=== PATIENT | female | born 1965 | race Caucasian/White ===

== ENCOUNTER 2018-06-16 09:02 | Day surgery (SDC) | payer OTHER ==
[~2018-06-16] VITALS: Ht 165.1 cm; Wt 69.6 kg
[~2018-06-16 09:02] MED LIST: LEVO112T2 PO; LIDOCAINE 2% INJ 100 MG/5 ML SDV (FOR ANES.) As Ordered ONE; MAG-400T7 PO; MULT1TAB10 PO; NS 1,000 ML IV ONE; PROG100C PO; PROPOFOL 200 MG/20 ML VIAL As Ordered ONE; VITA100067 PO
[2018-06-16] MEDS ORDERED: PROPOFOL 200 MG/20 ML VIAL As Ordered ONE (10:18)
--- NOTE | 2018-06-16 10:35 | ROOR ---
Patient Name: Shantal Maki Procedure Date: 06/16/2018 10:07 AM Date of : 1965 Age: 52 Room: [facility] Gender: Female Note Status: Finalized Procedure: Colonoscopy Indications: Screening for colorectal malignant neoplasm Providers: Zander Brooks Jr, MD Referring MD: Christopher Singh MD Requesting Provider: Medicines: Propofol per Anesthesia Complications: No immediate complications. Procedure: Pre-Anesthesia Assessment: - Prior to the procedure, a History and Physical was performed, and patient medications and allergies were reviewed. The patient is competent. The risks and benefits of the procedure and the sedation options and risks were discussed with the patient. All questions were answered and informed consent was obtained. Patient identification and proposed procedure were verified by the physician and the nurse in the pre-procedure area and in the procedure room. Mental Status Examination: alert and oriented. Airway Examination: normal oropharyngeal airway and neck mobility. Respiratory Examination: clear to auscultation. CV Examination: normal. ASA Grade Assessment: I - A normal, healthy patient. After reviewing the risks and benefits, the patient was deemed in satisfactory condition to undergo the procedure. The anesthesia plan was to use moderate sedation / analgesia (conscious sedation). Immediately prior to administration of medications, the patient was re-assessed for adequacy to receive sedatives. The heart rate, respiratory rate, oxygen saturations, blood pressure, adequacy of pulmonary ventilation, and response to care were monitored throughout the procedure. The physical status of the patient was re-assessed after the procedure. The Colonoscope was introduced through the anus and advanced to the right colon. The patient tolerated the procedure well. The quality of the bowel preparation was adequate and fair. The colonoscopy was performed with moderate difficulty due to a redundant colon. Successful completion of the procedure was aided by changing the patient's position, using manual pressure and withdrawing and reinserting the scope. Findings: The rectum, recto-sigmoid colon, sigmoid colon, descending colon, transverse colon and ascending colon appeared normal. The sigmoid colon, descending colon, transverse colon and ascending colon were significantly redundant. Impression: - Preparation of the colon was fair. - The rectum, recto-sigmoid colon, sigmoid colon, descending colon, transverse colon and ascending colon are normal. - Redundant colon. - No specimens collected. Recommendation: - Discharge patient to home (ambulatory). - Repeat colonoscopy in 10 years for screening purposes. Zander Brooks MD Zander Brooks Jr, MD 06/16/2018 10:34:27 AM Electronically signed by Zander Brooks Jr, MD Number of Addenda: 0 Note Initiated On: 06/16/2018 10:07 AM Estimated Blood Loss: Estimated blood loss: none.
[2018-06-16 10:55] VITALS: BP 103/58
== END 2018-06-16 11:13 | disposition home or self-care (01) ==
LOC: M OPP 09:02
PROVIDERS: ATTEND Surgery
DX: Q43.8 Other specified congenital malformations of intestine (principal); Z12.11 Encounter for screening for malignant neoplasm of colon

== ENCOUNTER → 2018-10-07 | Outpatient (CLI) | payer OTHER ==
[~2018-10-07] MED LIST changes: -LIDOCAINE 2% INJ 100 MG/5 ML SDV (FOR ANES.) As Ordered ONE; -NS 1,000 ML IV ONE; -PROG100C PO; +PROG1CAP8 PO; -PROPOFOL 200 MG/20 ML VIAL As Ordered ONE
--- NOTE | 2018-10-07 18:43 | REP ---
MRI RIGHT SHOULDER: TECHNIQUE: Axial T2 fat sat, gradient echo, sagittal oblique T2 fat sat, coronal oblique T1, T2 fat sat. Supraspinatus tendon demonstrates some minor ill-defined high signal compatible with minor tendinopathy. There is increased signal in the subscapularis tendon extending through the majority of the thickness of the tendon most consistent with a partial tear. There are mild hypertrophic degenerative changes of the acromioclavicular joint with a tiny amount of fluid in the joint and mild subchondral cystic change in the distal end of the clavicle. Acromion is type 2. Biceps tendon is within the bicipital groove with no tenosynovitis. There is no Hill Sach's deformity. The deltoid muscle demonstrates no abnormal signal. There is fraying of the biceps labral complex. However I do not see evidence of a discrete labral tear. No paralabral cyst is seen. Mild subchondral cystic changes are seen in the superolateral humeral head. There is a normal amount of joint fluid. IMPRESSION: Minor supraspinatus tendinopathy. There appears to be a partial tear of the subscapularis tendon. There are mild hypertrophic degenerative changes of the acromiclavicular joint with a type 2 acromion. Fraying of the biceps labral complex without a discrete labral tear. Electronically Signed by Samere Mccarthy MD 10/09/2018 09:10 P
--- NOTE | 2018-10-11 12:16 | REPVR ---
EXAM: MR Cervical Spine Without Contrast EXAM DATE/TIME: 10/07/2018 4:47 PM CLINICAL HISTORY: 52 years old, female; Neck pain; Patient HX: Neck shoulder pain; Additional info: Osteoarthritis right shoulder, ddd cervical TECHNIQUE: Imaging protocol: Multiplanar magnetic resonance images of the cervical spine without contrast. COMPARISON: No relevant prior studies available. FINDINGS: Vertebral body heights are intact. Alignment is maintained. The cervicomedullary junction appears unremarkable. The spinal cord appears normal in signal. There are varying degrees of disc desiccation indicating intervertebral disc degeneration. C2-3: No significant disc displacement. C3-4: Disc osteophyte complex combined with uncinate hypertrophy to lead to mild bilateral neural foraminal narrowing without significant spinal stenosis. C4-5: Disc osteophyte complex with a broad-based central protrusion combining with uncinate hypertrophy to lead to mild right and mild to moderate left neural foraminal narrowing with mild indentation of the anterior aspect of the spinal cord, without significant central canal stenosis. C5-6: Disc osteophyte complex combining with uncinate hypertrophy to lead to mild right and moderate left neural foraminal narrowing without significant spinal stenosis. C6-7: Disc osteophyte complex combining with uncinate hypertrophy to lead to very mild right and mild left neural foraminal narrowing without significant spinal stenosis. C7-T1: Included on the sagittal sequences only, there appears to be a small osteophytic ridge with very mild bilateral neural foraminal narrowing. If surgery is considered, recommend level confirmation. IMPRESSION: Multilevel disc desiccation indicating intervertebral disk degeneration with disc displacements as described. Electronically signed by: Jeremiah Hickman On 10/11/2018 12:16:04 PM
== END ==
LOC: M RAD 15:26
PROVIDERS: ATTEND Physician Assistant
DX: M19.011 Primary osteoarthritis, right shoulder (principal)

== ENCOUNTER → 2019-12-29 | Outpatient (REF) | payer OTHER ==
[2019-12-29 13:20] LABS: FREE T3 2.4 PG/ML (2.2-4.0); RHEUMATOID FACTOR QUANT < 10.0 IU/ML (<15.0)
[2019-12-30 17:07] LABS: ANTINUCLEAR ANTIBODIES DIRECT Negative (Negative); Lyme Disease IgG/IgM Antibodie <0.91 ISR (0.00-0.90); Lyme Disease IgM Ab Quantitati <0.80 index (0.00-0.79)
== END ==
LOC: M LAB REF 12:15
PROVIDERS: ATTEND Family Medicine
DX: E03.9 Hypothyroidism, unspecified (principal); M25.50 Pain in unspecified joint

== ENCOUNTER → 2021-02-06 | Outpatient (CLI) | payer OTHER ==
--- NOTE | 2021-02-06 13:51 | REPMRS ---
Patient History The patient states she had a clinical breast examin 2020. Patient is postmenopausal. Family history of prostate cancer at age 75 in father. Benign stereotactic [place] of the left breast, August 2011. Benign stereotactic [place] of the left breast, 2011. No Hormone Replacement Therapy Patient states no breast complaints today. Patient has signed MRS History Sheet. Digital Woman Screen Mammo: February 06, 2021 - Exam #: [id number] Bilateral CC and MLO view(s) were taken. Technologist: Kimberley Rodriguez, Tai Chi Instructor Prior study comparison: October 08, 2015, bilateral digital mammo screening bilat, performed at [facility]. October 02, 2014, bilateral digital mammo screening bilat, performed at [facility]. FINDINGS: The breast tissue is heterogeneously dense. This may lower the sensitivity of mammography. Screening. Digital screening (2D) mammography was performed bilaterally in the CC and MLO projections. Additionally, breast tomosynthesis (3D mammography) was performed bilaterally in the CC and MLO projections. Todays exam was compared to the prior exam/exams. By history, the patient has no complaints of a palpable breast abnormality or other significant breast complaints. The Volpara volumetric breast density category is C, the breasts are heterogenously dense which may obscure small masses. There are two stable biopsy clips in the left breast. The breasts are unchanged in size and shape. There are no too-soft tissue densities or spiculated masses. There is no internal architectural distortion. There are no suspicious too-calcific clusters. Skin thickening or nipple retraction is not present. IMPRESSION: BI-RADS Category 2- Benign Findings. There is no evidence of malignant alteration of the breasts. Followup examination recommended in one year. The lifetime Tyrer-Cuzick score is 12.9% This mammogram was read with the assistance of [employer],an FDA approved computer aided detection system for mammography. Due to the density of the breasts or Tyrer Cuzick score of 20% or greater, MRI/whole breast screening ultrasound is warranted. Negative x-ray reports should not delay surgical consultation if a dominant or clinically suspicious mass is present. Not all breast cancers can be identified by mammography. Therefore, we recommend that you continue to perform regular breast self-examination and physical examination and then promptly contact your physician of any concerns or changes. Adenosis and dense breasts may obscure an underlying neoplasm. Assessment: BI-RADS/ACR category 2 mammogram. Benign Findings. Recommendation Routine screening mammogram of both breasts in 1 year. Electronically Signed By: Hector Crowell MD 02/06/21 [id number]
== END ==
LOC: M WHC 12:54
PROVIDERS: ATTEND Family Medicine
DX: Z12.31 Encounter for screening mammogram for malignant neoplasm of breast (principal); M81.0 Age-related osteoporosis without current pathological fracture

== ENCOUNTER → 2021-09-08 | Outpatient (CLI) | payer BC ==
[2021-09-08 14:37] LABS: HEMATOCRIT 38.3 % (36.0-47.0); MEAN CORPUSCULAR HEMOGLOBIN 32.2 pg (27.0-33.0); MEAN CORPUSCULAR HGB CONC 33.9 g/dl (32.0-36.5); MEAN CORPUSCULAR VOLUME 94.8 fl (80.0-96.0); PLATELET COUNT, AUTOMATED 316 10^3/uL (150-450); RED BLOOD COUNT 4.04 10^6/uL (4.00-5.40); WHITE BLOOD COUNT 4.2 10^3/uL (4.0-10.0)
[2021-09-08 15:07] LABS: ALBUMIN 4.1 GM/DL (3.2-5.2); ALT/SGPT 20 U/L (12-78); BILIRUBIN,TOTAL 0.3 MG/DL (0.2-1.0); BLOOD UREA NITROGEN 11 MG/DL (7-18); CALCIUM LEVEL 9.7 MG/DL (8.5-10.1); CARBON DIOXIDE LEVEL 28 MEQ/L (21-32); CHLORIDE LEVEL 106 MEQ/L (98-107); CREATININE FOR GFR 0.84 MG/DL (0.55-1.30); GLOMERULAR FILTRATION RATE > 60.0 (>51); GLUCOSE, FASTING 92 MG/DL (70-100); MAGNESIUM LEVEL 2.3 MG/DL (1.8-2.4); SODIUM LEVEL 141 MEQ/L (136-145); TOTAL PROTEIN 6.9 GM/DL (6.4-8.2)
[2021-09-08 15:27] LABS: CK-MB VALUE MASS < 1.0 NG/ML (<3.6); CPK CREATINE PHOSPHOKINASE 55 U/L (26-192); MB/CK RELATIVE INDEX 1.82 (< OR =4)
[2021-09-08 17:35] LABS: MYOGLOBIN 33 NG/ML (13-71)
== END ==
LOC: M RAD 13:50
PROVIDERS: ATTEND Physician Assistant
DX: R07.9 Chest pain, unspecified (principal)

== ENCOUNTER → 2022-02-20 | Outpatient (CLI) | payer BC | LOC: M WHC 15:44 | PROVIDERS: ATTEND Obstetrics & Gynecology | DX: Z12.31 Encounter for screening mammogram for malignant neoplasm of breast (principal) ==

== ENCOUNTER → 2022-10-15 | Outpatient (REF) | payer BC ==
[2022-10-15 18:21] LABS: BASO # 0.1 10^3/uL (0.0-0.2); EOS # 0.1 10^3/uL (0.0-0.5); EOS % 2.3 % (0.0-3.0); HEMATOCRIT 35.9 % (36.0-47.0); HEMOGLOBIN 11.7 g/dl (12.0-15.5); LYMPH # 1.8 10^3/uL (1.5-5.0); LYMPH % 34.6 % (24.0-44.0); MEAN CORPUSCULAR HEMOGLOBIN 32.3 pg (27.0-33.0); MEAN CORPUSCULAR HGB CONC 32.6 g/dl (32.0-36.5); MEAN CORPUSCULAR VOLUME 99.2 fl (80.0-96.0); MONO # 0.5 10^3/uL (0.0-0.8); MONO % 10.3 % (2.0-8.0); NEUTROPHILS # 2.7 10^3/uL (1.5-8.5); NEUTROPHILS % 51.6 % (36.0-66.0); PLATELET COUNT, AUTOMATED 301 10^3/uL (150-450); RED BLOOD COUNT 3.62 10^6/uL (4.00-5.40); WHITE BLOOD COUNT 5.2 10^3/uL (4.0-10.0)
[2022-10-15 18:47] LABS: ALBUMIN 4.2 G/DL (3.2-5.2); ALKALINE PHOSPHATASE 50 U/L (46-116); ALT/SGPT 14 U/L (7.0-40); AST/SGOT 10 U/L (<34); BILIRUBIN,TOTAL 0.5 MG/DL (0.3-1.2); BLOOD UREA NITROGEN 17 MG/DL (9-23); CALCIUM LEVEL 9.3 MG/DL (8.5-10.1); CARBON DIOXIDE LEVEL 28 MMOL/L (20-31); CHLORIDE LEVEL 102 MMOL/L (98-107); CREATININE FOR GFR 0.72 MG/DL (0.55-1.30); FREE T4 1.41 NG/DL (0.89-1.76); GLOMERULAR FILTRATION RATE > 60.0 (>51); GLUCOSE, FASTING 86 MG/DL (60-100); SODIUM LEVEL 138 MMOL/L (136-145); THYROID STIMULATING HORMONE 0.963 uIU/ML (0.55-4.78); TOTAL PROTEIN 6.8 G/DL (5.7-8.2)
== END ==
LOC: M LAB REF 17:14
PROVIDERS: ATTEND Family Medicine
DX: E78.5 Hyperlipidemia, unspecified (principal); E03.9 Hypothyroidism, unspecified

== ENCOUNTER → 2023-02-24 | Outpatient (CLI) | payer BC | LOC: M WHC 16:35 | PROVIDERS: ATTEND Family Medicine | DX: Z12.31 Encounter for screening mammogram for malignant neoplasm of breast (principal) ==

== ENCOUNTER → 2024-03-31 | Outpatient (CLI) | payer BC | LOC: M WUC 08:05 | PROVIDERS: ATTEND Family Medicine | DX: M54.50 Low back pain, unspecified (principal); W19.XXXA Unspecified fall, initial encounter ==